=== PATIENT | female | born 1930 | race Caucasian/White ===

== ENCOUNTER 2017-09-03 13:56 | Inpatient (IN) | payer OTHER, BC ==
--- OUTSIDE RECORDS SUMMARY | 2017-09-03 14:08 | XMS REPORT | Clinical Summary ---
:1930 Author Organization [facility] Address [address] [place] [address] Phone Care Team Providers Name Role Phone Unavailable Primary Care Provider Unavailable Allergies No Known Allergies Current Medications Prescription Sig. Disp. Refills Start Date End Date Status potassium chloride Take 20 mEq by Active (KAYCIEL) 20 mEq/15 mL mouth daily. solutionIndications: hypokalemia metolazone (ZAROXOLYN) Take 5 mg by Active 5 MG mouth daily. tabletIndications: Peripheral Edema due to Chronic Heart Failure warfarin (COUMADIN) Take 2.5 mg by Active 2.5 MG tablet mouth daily. atorvastatin (LIPITOR) Take 10 mg by Active 10 MG tablet mouth daily. digoxin (LANOXIN) Take 125 mcg by Active 0.125 MG tablet mouth daily. metoprolol (TOPROL-XL) Take 1 tablet 60 tablet 11 12/05/2015 12/04/2016 25 MG 24 hr tablet (25 mg total) by mouth every 12 (twelve) hours. Active Problems Problem Noted Date Underweight 12/04/2015 Hyponatremia 12/03/2015 Hypokalemia 12/03/2015 Hypomagnesemia 12/03/2015 Hypoalbuminemia due to protein-calorie malnutrition (HCC) 12/03/2015 Severe protein-calorie malnutrition (HCC) 12/03/2015 Open wound of right foot 12/03/2015 Weakness generalized 12/03/2015 Sepsis ([facility]) 12/03/2015 Pleural effusion 12/03/2015 Thoracic aorta atherosclerosis ([facility]) 12/03/2015 Non-rheumatic tricuspid valve insufficiency 12/03/2015 Enlarged LA (left atrium) 12/03/2015 Hypotension 12/02/2015 Chronic diastolic heart failure ([facility]) 12/02/2015 Elevated liver enzymes 12/02/2015 Supratherapeutic INR 12/02/2015 SIRS (systemic inflammatory response syndrome) ([facility]) 12/01/2015 Atrial fibrillation with RVR (HCC) 11/30/2015 Social History Tobacco Use Types Packs/Day Years Used Date Never Smoker Alcohol Use Drinks/Week oz/Week Comments No Sex Assigned at Date Recorded Not on file Last Filed Vital Signs Not on file Plan of Treatment Not on file Results Not on fileafter 09/02/2016
[2017-09-03 15:57] LABS: Protime INR 2.31
[2017-09-03 16:14] LABS: Absolute Lymphocytes (CBC) 0.4 K/uL (0.7-4.9); Absolute Monocytes 1.2 K/uL (0.1-1.3); Absolute Neutrophil 13.5 K/uL (1.8-8.0); Basophils % 0.3 % (0-1.3); Lymphocytes % 2.5 % (15.3-44.8); MCH 30.7 pg (27.0-35.0); MCV 91.6 fL (80-100); MPV 8.9 fL (7.6-11.3); RBC Red Blood Cell Count 4.15 M/uL (3.86-4.86)
[2017-09-03 16:16] LABS: Albumin 2.8 g/dL (3.4-5.0); Bilirubin Direct 0.3 mg/dL (0-0.2); Bilirubin Total 0.8 mg/dL (0.2-1.0); Potassium 4.1 mmol/L (3.5-5.1); Protein, Total 7.3 g/dL (6.4-8.2)
--- NOTE | 2017-09-03 16:24 | RAD REPORT ---
EXAM DESCRIPTION: Aliyah Single View09/03/2017 4:17 pm CLINICAL HISTORY: cough COMPARISON: 2016 FINDINGS: Mild to moderate bilateral interstitial lung opacities are seen. Small pleural effusions a re suspected. The heart is mildly enlarged IMPRESSION: Small bilateral pleural effusions Mild bilateral social lung opacities probably represent interstitial pulmonary.
--- NOTE | 2017-09-03 16:40 | EDPHYS ---
Physician Documentation [facility] Name: Monik Romo Age: 86 yrs Sex: Female : 1930 Arrival Date: 09/03/2017 Time: 13:59 Bed 16 Private MD: Efrem Gay V ED Physician Jovan Mora HPI: 09/03 17:57 This 86 yrs old Female presents to ER via Wheelchair with complaints of kdr Fever, Breathing Difficulty. 17:57 The patient reports fever, not measured (subjective). kdr 17:57 The patient has shortness of breath at rest, with light activity. Onset: The kdr symptoms/episode began/occurred gradually, 2 day(s) ago. Duration: The symptoms are continuous, and are steadily getting worse. The patient's shortness of breath is aggravated by exertion, light activity. Associated signs and symptoms: Pertinent positives: productive cough, fever, nausea, Pertinent negatives: non-productive cough, diaphoresis, dizziness, hemoptysis. Severity of symptoms: At their worst the symptoms were mild. The patient has not experienced similar symptoms in the past. The patient has not recently seen a physician. Historical: - Allergies: 14:30 CRANBERRY; aj1 14:30 GRAPEFRUIT; aj1 14:30 avacado; aj1 - Home Meds: 14:30 atorvastatin 10 mg Oral tab 1 tab once daily [Active]; metoprolol tartrate 25 mg Oral aj1 tab 1 tab 2 times per day [Active]; potassium chloride 20 mEq/15 mL Oral liqd 15 mL once daily [Active]; Vitamin D3 1,000 unit oral tab daily [Active]; warfarin 2.5 mg Oral tab 1 tab once daily [Active]; xaltan daily [Active]; Colace 100 mg oral cap 1 cap once daily [Active]; - PMHx: 14:30 Atrial Fib; breast cancer; CHF; Glaucoma; pulmonary HTN; aj1 - Immunization history:: Flu vaccine is not up to date. - Social history:: Smoking status: Patient/guardian denies using tobacco. - Ebola Screening: : Patient denies travel to an Ebola-affected area in the 21 days before illness onset. ROS: 17:57 Eyes: Negative for injury, pain, redness, and discharge, ENT: Negative for injury, kdr pain, and discharge, Neck: Negative for injury, pain, and swelling, Cardiovascular: Negative for chest pain, palpitations, and edema, Abdomen/GI: Negative for abdominal pain, nausea, vomiting, diarrhea, and constipation, Back: Negative for injury and pain, : Negative for injury, bleeding, discharge, and swelling, MS/Extremity: Negative for injury and deformity, Skin: Negative for injury, rash, and discoloration, Neuro: Negative for headache, weakness, numbness, tingling, and seizure activity. Psych: Negative for depression, anxiety, suicide ideation, homicidal ideation, and hallucinations, Allergy/Immunology: Negative for hives, rash, and allergies, Endocrine: Negative for neck swelling, polydipsia, polyuria, polyphagia, and marked weight changes, Hematologic/Lymphatic: Negative for swollen nodes, abnormal bleeding, and unusual bruising. 17:57 Constitutional: Positive for fever, malaise, Negative for body aches, chills, fatigue. 17:57 Respiratory: Positive for cough, "sounds productive", dyspnea on exertion, shortness of breath, wheezing, inspiratory, expiratory. Exam: 17:57 Constitutional: This is a well developed, well nourished patient who is awake, alert, kdr and in no acute distress. Head/Face: Normocephalic, atraumatic. Eyes: Pupils equal round and reactive to light, extra-ocular motions intact. Lids and lashes normal. Conjunctiva and sclera are non-icteric and not injected. Cornea within normal limits. Periorbital areas with no swelling, redness, or edema. Neck: Trachea midline, no thyromegaly or masses palpated, and no cervical lymphadenopathy. Supple, full range of motion without nuchal rigidity, or vertebral point tenderness. No Meningismus. Chest/axilla: Normal chest wall appearance and motion. Nontender with no deformity. No lesions are appreciated. Cardiovascular: Regular rate and rhythm with a normal S1 and S2. No gallops, murmurs, or rubs. Normal PMI, no JVD. No pulse deficits. Abdomen/GI: Soft, non-tender, with normal bowel sounds. No distension or tympany. No guarding or rebound. No evidence of tenderness throughout. Back: No spinal tenderness. No costovertebral tenderness. Full range of motion. Skin: Warm, dry with normal turgor. Normal color with no rashes, no lesions, and no evidence of cellulitis. MS/ Extremity: Pulses equal, no cyanosis. Neurovascular intact. Full, normal range of motion. Neuro: Awake and alert, GCS 15, oriented to person, place, time, and situation. Cranial nerves II-XII grossly intact. Motor strength 5/5 in all extremities. Sensory grossly intact. Cerebellar exam normal. Normal gait. Psych: Awake, alert, with orientation to person, place and time. Behavior, mood, and affect are within normal limits. 17:57 Respiratory: the patient does not display signs of respiratory distress, Respirations: normal, accessory muscle usage, is absent, grunting, is not present, nasal flaring, is not appreciated, prolonged exhalation, is not present, pursed lip breathing, is not present, intercostal retractions, are absent, shallow respirations, that is mild, Breath sounds: rales, bronchial sounds, rhonchi, + upper airway congestion. wheezing: that is mild, is heard diffusely. Vital Signs: 14:30 BP 107 / 63; Pulse 110; Resp 24; Temp 99.0(O); Pulse Ox 88% on R/A; Weight 59.42 kg aj1 (R); Height 5 ft. 5 in. (165.10 cm); Pain 0/10; 14:37 Pulse Ox 95% on 2 lpm NC; aj1 15:54 BP 107 / 70; Pulse 119; Resp 27; Pulse Ox 98% on 2 lpm NC; tw2 17:16 BP 119 / 72; Pulse 97; Resp 28; Pulse Ox 98% on Nebulizer Mask; tw2 17:44 Pulse 152; tw2 17:51 BP 110 / 78; Pulse 121; Resp 26; Pulse Ox 100% on 2 lpm NC; tw2 17:57 Pulse 145; tw2 18:10 Pulse 135; tw2 18:16 BP 128 / 94; Pulse 121; Resp 26; Pulse Ox 97% on 2 lpm NC; tw2 18:38 Pulse 115; tw2 19:00 BP 100 / 50; Pulse 110; Resp 19; Pulse Ox 95% ; bp 19:52 BP 100 / 55; Pulse 107; Resp 22; Pulse Ox 96% on NC; bp 14:30 Body Mass Index 21.80 (59.42 kg, 165.10 cm) aj1 17:44 provider notified. medicated as ordered tw2 MDM: 16:40 Patient medically screened. kdr 17:57 Data reviewed: vital signs, nurses notes, lab test result(s), EKG, radiologic studies. kdr Counseling: I had a detailed discussion with the patient and/or guardian regarding: the historical points, exam findings, and any diagnostic results supporting the discharge/admit diagnosis, lab results, radiology results, the need for further work-up and treatment in the hospital. 18:03 ED course: The patient had been stable in the ED until a few minutes ago when her HR kdr increased to \\[id number]\\158. Her rate was intermittent and oscillated wildly. The patient was not detrimentally effected by this and was otherwise without complaint. Given small doses of b-vanessa IV and consulted Dr. Andrews. He suggested possible use of Amiodarone and moving the patient to ICU. 09/03 15:26 Order name: Amylase, Serum; Complete Time: 16:28 kdr 09/03 15:26 Order name: Basic Metabolic Panel; Complete Time: 16:28 kdr 09/03 15:26 Order name: Blood Culture Adult (2) kdr 09/03 15:26 Order name: C-Reactive Protein; Complete Time: 16:28 kdr 09/03 15:26 Order name: CBC with Diff kdr 09/03 15:26 Order name: CPK; Complete Time: 16:28 kdr 09/03 15:26 Order name: Lactate; Complete Time: 16:15 kdr 09/03 15:26 Order name: LFT's; Complete Time: 16:28 kdr 09/03 15:26 Order name: Lipase; Complete Time: 16:28 kdr 09/03 15:26 Order name: Procalcitonin kdr 09/03 15:26 Order name: Protime (+inr); Complete Time: 16:15 kdr 09/03 15:26 Order name: Ptt, Activated; Complete Time: 16:15 kdr 09/03 15:26 Order name: Sed Rate kdr 09/03 15:26 Order name: Troponin (emerg Dept Use Only); Complete Time: 16:28 kdr 09/03 15:26 Order name: Chest Single View XRAY kdr 09/03 16:36 Order name: BNP kdr 09/03 16:48 Order name: Low Sodium EDMS 09/03 16:48 Order name: Troponin I EDTX 09/03 16:48 Order name: Basic Metabolic Panel EDMS 07/12 16:48 Order name: Basic Metabolic Panel [facility] 09/03 16:48 Order name: CBC with Automated Diff EDTX 09/03 16:48 Order name: CBC with Automated Diff [facility] 09/03 16:48 Order name: NT PRO-BNP [facility] 09/03 16:48 Order name: NT PRO-BNP [facility] 09/03 19:39 Order name: Manual Differential [facility] 09/03 15:26 Order name: Cardiac monitoring; Complete Time: 16:00 kdr 09/03 15:26 Order name: EKG - Nurse/Tech; Complete Time: 16:00 kdr 09/03 15:26 Order name: IV Saline Lock - Large Bore; Complete Time: 16:00 kdr 09/03 15:26 Order name: Labs collected and sent; Complete Time: 16:00 kdr 09/03 15:26 Order name: O2 Per Protocol; Complete Time: 16:00 kdr 09/03 15:26 Order name: O2 Sat Monitoring; Complete Time: 16:00 kdr Administered Medications: 15:27 CANCELLED (per provider): NS 0.9% (30 ml/kg) 30 ml/kg IV at bolus once; Sepsis Protocol iw 17:10 Drug: Lasix 20 mg Route: IVP; Site: left antecubital; tw2 17:58 Follow up: Response: No adverse reaction tw2 17:16 Drug: Xopenex (3) 1.25 mg Route: Inhalation; tw2 17:48 Drug: Lopressor 2.5 mg Route: IVP; Site: left antecubital; tw2 18:10 Follow up: Pulse 135 bpm; Response: No adverse reaction; provider aware, icu room tw2 ordered. 18:05 Drug: Digoxin 0.5 mg Route: IVP; Site: left antecubital; tw2 18:41 Follow up: Response: No adverse reaction tw2 Disposition: 09/03/17 16:40 Hospitalization ordered by Efrem Gay for Inpatient Admission. Preliminary diagnosis are Acute pulmonary edema, Upper respiratory infection, SOB, Hypoxia. - Bed requested for Intensive Care Unit. - Status is Inpatient Admission. bb - Condition is Fair. - Problem is new. - Symptoms have improved. UTI on Admission? No Signatures: Dispatcher [employer] EDMS Hollie Dave RN RN aj1 Jovan Mora MD MD [facility] Xiao Landis RN RN bb Brigitte Lloyd RN RN tw2 Katia Haddad, RN RN df Mercedes Watson RN Corrections: (The following items were deleted from the chart) 15:27 15:26 NS 0.9% (30 ml/kg) 30 ml/kg IV at bolus once; Sepsis Protocol ordered. kdr iw 15:27 15:26 Accucheck ordered. kdr iw 17:51 16:40 Hospitalization Ordered by Efrem Gay MD for Inpatient Admission. Preliminary df diagnosis is Acute pulmonary edema; Upper respiratory infection, SOB, Hypoxia. Bed requested for Telemetry/MedSurg (Inpatient). Status is Inpatient Admission. Condition is Fair. Problem is new. Symptoms have improved. UTI on Admission? No. kdr 18:09 17:51 09/03/2017 16:40 Hospitalization Ordered by Efrem Gay MD for Inpatient kdr Admission. Preliminary diagnosis is Acute pulmonary edema; Upper respiratory infection, SOB, Hypoxia. Bed requested for Telemetry/MedSurg (Inpatient). Status is Inpatient Admission. Condition is Fair. Problem is new. Symptoms have improved. UTI on Admission? No. df 18:15 18:09 09/03/2017 16:40 Hospitalization Ordered by Efrem Gay MD for Inpatient df Admission. Preliminary diagnosis is Acute pulmonary edema; Upper respiratory infection, SOB, Hypoxia. Bed requested for Intensive Care Unit. Status is Inpatient Admission. Condition is Fair. Problem is new. Symptoms have improved. UTI on Admission? No. kdr 20:45 18:15 09/03/2017 16:40 Hospitalization Ordered by Efrem Gay MD for Inpatient bb Admission. Preliminary diagnosis is Acute pulmonary edema; Upper respiratory infection, SOB, Hypoxia. Bed requested for Intensive Care Unit. Status is Inpatient Admission. Condition is Fair. Problem is new. Symptoms have improved. UTI on Admission? No. df
--- NOTE | 2017-09-03 16:40 | ER ---
Nurse's Notes [facility] Name: Monik Romo Age: 86 yrs Sex: Female : 1930 Arrival Date: 09/03/2017 Time: 13:59 Bed 16 Private MD: Efrem Gay V Diagnosis: Acute pulmonary edema;Upper respiratory infection, SOB, Hypoxia Presentation: 09/03 14:25 Presenting complaint: Patient states: Her home health nurse sent here because her aj1 oxygen saturation was low and her heart rate was high. Denies pain. Denies SOB, reports congestion. Transition of care: patient was not received from another setting of care. Onset of symptoms was September 03, 2017. Risk Assessment: Do you want to hurt yourself or someone else? Patient reports no desire to harm self or others. Initial Sepsis Screen: Does the patient meet any 2 criteria? No. Patient's initial sepsis screen is negative. Does the patient have a suspected source of infection? No. Patient's initial sepsis screen is negative. Care prior to arrival: None. 14:25 Method Of Arrival: Wheelchair aj1 14:25 Acuity: JULIAN 3 aj1 Triage Assessment: 14:30 General: Appears in no apparent distress. comfortable, Behavior is calm, cooperative, aj1 appropriate for age. Pain: Denies pain. Neuro: Level of Consciousness is awake, alert, obeys commands. Cardiovascular: Patient's skin is warm and dry. Respiratory: Reports shortness of breath on exertion Airway is patent Respiratory effort is even, unlabored, Respiratory pattern is regular, symmetrical, Onset: The symptoms/episode began/occurred today, the patient has mild shortness of breath. Historical: - Allergies: 14:30 CRANBERRY; aj1 14:30 GRAPEFRUIT; aj1 14:30 avacado; aj1 - Home Meds: 14:30 atorvastatin 10 mg Oral tab 1 tab once daily [Active]; metoprolol tartrate 25 mg Oral aj1 tab 1 tab 2 times per day [Active]; potassium chloride 20 mEq/15 mL Oral liqd 15 mL once daily [Active]; Vitamin D3 1,000 unit oral tab daily [Active]; warfarin 2.5 mg Oral tab 1 tab once daily [Active]; xaltan daily [Active]; Colace 100 mg oral cap 1 cap once daily [Active]; - PMHx: 14:30 Atrial Fib; breast cancer; CHF; Glaucoma; pulmonary HTN; aj1 - Immunization history:: Flu vaccine is not up to date. - Social history:: Smoking status: Patient/guardian denies using tobacco. - Ebola Screening: : Patient denies travel to an Ebola-affected area in the 21 days before illness onset. Screenin:44 Abuse screen: Denies threats or abuse. Nutritional screening: No deficits noted. tw2 Tuberculosis screening: No symptoms or risk factors identified. Fall Risk None identified. Assessment: 14:42 General: Appears in no apparent distress. Behavior is calm, cooperative, appropriate tw2 for age. Pain: Denies pain. Neuro: Level of Consciousness is awake, alert, obeys commands, Oriented to person, place, situation. Cardiovascular: Denies chest pain, Heart tones S1 S2 Capillary refill < 3 seconds Rhythm is atrial fibrillation. Respiratory: Airway is patent Respiratory effort is even, unlabored, Respiratory pattern is regular, symmetrical, Breath sounds are diminished bilaterally. GI: No signs and/or symptoms were reported involving the gastrointestinal system. Abdomen is flat. : No signs and/or symptoms were reported regarding the genitourinary system. EENT: No signs and/or symptoms were reported regarding the EENT system. Derm: Skin is fragile, is thin, Skin is dry, Skin temperature is warm. Musculoskeletal: Range of motion: intact in all extremities. 14:42 Respiratory: Reports cough that is productive, white sputum on occasion. tw2 15:55 Reassessment: Patient appears in no apparent distress at this time. No changes from tw2 previously documented assessment. Patient and/or family updated on plan of care and expected duration. Pain level reassessed. Patient is alert, oriented x 3, equal unlabored respirations, skin warm/dry/pink. 17:17 Reassessment: Patient appears in no apparent distress at this time. No changes from tw2 previously documented assessment. Patient and/or family updated on plan of care and expected duration. Pain level reassessed. Patient is alert, oriented x 3, equal unlabored respirations, skin warm/dry/pink. 17:20 Reassessment: notified caryn mccurdy from lab of need for 2nd troponin to be drawn. tw2 18:18 Reassessment: Patient appears in no apparent distress at this time. No changes from tw2 previously documented assessment. Patient and/or family updated on plan of care and expected duration. Pain level reassessed. Patient is alert, oriented x 3, equal unlabored respirations, skin warm/dry/pink. 19:00 Reassessment: RECD REPORT FROM RAMONA ROJAS. 86WF P/W FEVER AND SOB. ICU ADMIT IN PROCESS bp FOR ACUTE URI AND PULMONARY EDEMA. VS STABLE ON MONITOR. 20:00 Reassessment: PT ADMIT TO ICU. AFIB ON MONITOR, KNOWN H/O SAME. bp 20:21 Reassessment: PT CADEN WITH RN, REPORT TO DANE ROJAS. bp Vital Signs: 14:30 BP 107 / 63; Pulse 110; Resp 24; Temp 99.0(O); Pulse Ox 88% on R/A; Weight 59.42 kg aj1 (R); Height 5 ft. 5 in. (165.10 cm); Pain 0/10; 14:37 Pulse Ox 95% on 2 lpm NC; aj1 15:54 BP 107 / 70; Pulse 119; Resp 27; Pulse Ox 98% on 2 lpm NC; tw2 17:16 BP 119 / 72; Pulse 97; Resp 28; Pulse Ox 98% on Nebulizer Mask; tw2 17:44 Pulse 152; tw2 17:51 BP 110 / 78; Pulse 121; Resp 26; Pulse Ox 100% on 2 lpm NC; tw2 17:57 Pulse 145; tw2 18:10 Pulse 135; tw2 18:16 BP 128 / 94; Pulse 121; Resp 26; Pulse Ox 97% on 2 lpm NC; tw2 18:38 Pulse 115; tw2 19:00 BP 100 / 50; Pulse 110; Resp 19; Pulse Ox 95% ; bp 19:52 BP 100 / 55; Pulse 107; Resp 22; Pulse Ox 96% on NC; bp 14:30 Body Mass Index 21.80 (59.42 kg, 165.10 cm) aj1 17:44 provider notified. medicated as ordered tw2 ED Course: 13:59 Patient arrived in ED. rg4 13:59 Efrem Gay MD is Private Physician. rg4 14:27 Triage completed. aj1 14:30 Arm band placed on Patient placed in an exam room. aj1 14:34 Ramona Lloyd RN is Primary Nurse. tw2 14:40 Jovan Mora MD is Attending Physician. kdr 14:44 Bed in low position. Call light in reach. Side rails up X 1. Adult w/ patient. Cardiac tw2 monitor on. Pulse ox on. NIBP on. 16:18 Chest Single View XRAY In Process Unspecified. EDMS 16:38 Efrem Gay MD is Hospitalizing Provider. kdr 18:17 Awaiting: attempted to call report, Caryn Hough states "they are getting ready to do tw2 shift change can you call back". 18:59 Report given to CRYSTAL Carey. tw2 19:02 No provider procedures requiring assistance completed. Patient admitted, IV remains in bp place. Administered Medications: 15:27 CANCELLED (per provider): NS 0.9% (30 ml/kg) 30 ml/kg IV at bolus once; Sepsis Protocol iw 17:10 Drug: Lasix 20 mg Route: IVP; Site: left antecubital; tw2 17:58 Follow up: Response: No adverse reaction tw2 17:16 Drug: Xopenex (3) 1.25 mg Route: Inhalation; tw2 17:48 Drug: Lopressor 2.5 mg Route: IVP; Site: left antecubital; tw2 18:10 Follow up: Pulse 135 bpm; Response: No adverse reaction; provider aware, icu room tw2 ordered. 18:05 Drug: Digoxin 0.5 mg Route: IVP; Site: left antecubital; tw2 18:41 Follow up: Response: No adverse reaction tw2 Intake: Outcome: 16:40 Decision to Hospitalize by Provider. kdr 20:22 Admitted to ICU accompanied by nurse, family with patient, via stretcher, room 7, with bp oxygen, with chart, Report called to DANE ROJAS 20:22 Condition: stable 20:22 Instructed on the need for admit. 20:45 Patient left the ED. bb Signatures: Dispatcher [employer] EDMS Hollie Dave RN RN aj1 Jovan Mora MD MD kdr Xiao Landis RN RN bb Ramona Lloyd RN RN tw2 Alessandra Minor rg4 Samuel Harvey RN RN bp Williams, Irene RN iw Corrections: (The following items were deleted from the chart) 14:44 14:42 Cardiovascular: Denies chest pain, Heart tones S1 S2 Capillary refill < 3 seconds tw2 Rhythm is irregular tw2 15:59 14:42 Respiratory: Airway is patent Respiratory effort is even, unlabored, Respiratory tw2 pattern is regular, symmetrical, Breath sounds are clear bilaterally. tw2 17:58 17:44 Pulse 152bpm; provider notified.; tw2 tw2
[2017-09-03] MEDS ORDERED: ACETAMINOPHEN 500 MG TAB PO PRN (16:43)
[2017-09-03] MEDS ORDERED: IPRATROPIUM BROM 0.5MG/2.5ML NEB PRN (16:43)
[2017-09-03] MEDS ORDERED: ONDANSETRON 4 MG/2 ML VIAL IV PRN (16:43)
[2017-09-03] MEDS: FUROSEMIDE 20 MG/ 2ML VIAL IV SCH (17:00)
[2017-09-03] MEDS ORDERED: FUROSEMIDE 20 MG/ 2ML VIAL IV SCH (17:00)
[2017-09-03] MEDS ORDERED: FUROSEMIDE 20 MG/ 2ML VIAL ONE (17:13)
[2017-09-03] MEDS ORDERED: LEVALBUTEROL 1.25 MG/3 ML NEB ONE (17:14)
[2017-09-03] MEDS ORDERED: METOPROLOL TARTRATE 5 MG/5 ML INJ IV ONE (17:49)
[2017-09-03] MEDS ORDERED: DIGOXIN 0.25 MG/ML AMP ONE (18:05)
[2017-09-03 19:39] LABS: Blood Morphology Comment NOT SEEN (NOT SEEN); Platelet Estimate ADEQ
[2017-09-03] MEDS: LEVALBUTEROL 1.25 MG/3 ML NEB NEB SCH (21:17)
--- NOTE | 2017-09-03 21:35 | P.HP ---
Certification for Inpatient Patient admitted to: Inpatient With expected LOS: >2 Midnights Practitioner: I am a practitioner with admitting privileges, knowledge of patient current condition, hospital course, and medical plan of care. Services: Services provided to patient in accordance with Admission requirements found in Title 42 Section 412.3 of the Code of Federal Regulations Patient History Date of Service: 09/03/17 Reason for admission: WEAK, FATIGUE History of Present Illness: MS. MADRID IS A FRAIL LADY WITH A FIB BY HISTORY COMES WITH WEAKNESS, FATIGUE, LOW GRADE TEMP ELEVATION AND RAPID A FIB. SHE WAS GIVEN A DOSE OF DIGOXIN IV AND LOPRESSOR, NOW IN ICU. SHE HAS HIGH BNP AND HIGH CRP. WBC COUNT IS 15K. Allergies cranberry Allergy (Unverified 09/03/17 20:51) Unknown grapefruit Allergy (Unverified 09/03/17 20:51) Unknown avacado Allergy (Uncoded 09/03/17 20:51) Unknown - Past Medical/Surgical History Has patient received pneumonia vaccine in the past: Yes -: atrial Fibrillation -: breast cancer -: CHF -: Glaucoma -: tonsilectomy -: hysterectomy -: mastectomy - Family History Father -: Cancer Mother -: Cancer - Social History Smoking Status: Never smoker Alcohol use: No CD- Drugs: No Caffeine use: Yes Place of Residence: Home Review of Systems 10-point ROS is otherwise unremarkable General: Weakness, Malaise Respiratory: Cough, Shortness of Breath Physical Examination - Vital Signs Temperature: 99.0 F Blood Pressure: 100/55 Pulse: 107 Respirations: 22 - Physical Exam General: Alert, In no apparent distress, Mild distress HEENT: Atraumatic, PERRLA, Mucous membr. moist/pink, EOMI, Sclerae nonicteric Neck: Supple, 2+ carotid pulse no bruit, No LAD, Without JVD or thyroid abnormality Respiratory: Diminished, Crackles/rales Cardiovascular: Irregular heart rate/rhythm, Abnormal S1 S2 Gastrointestinal: Normal bowel sounds, No tenderness Musculoskeletal: No tenderness Integumentary: No rashes Neurological: Normal gait, Normal speech, Normal strength at 5/5 x4 extr, Normal tone, Normal affect Lymphatics: No axilla or inguinal lymphadenopathy - Studies Laboratory Data (last 24 hrs) 09/03/17 15:30: PT 27.5 H, INR 2.31, APTT 29.6 09/03/17 15:30: WBC 15.2 H, Hgb 12.7, Hct 38.0, Plt Count 256 09/03/17 15:30: Sodium 139, Potassium 4.1, BUN 21 H, Creatinine 1.00, Glucose 166 H, Total Bilirubin 0.8, AST 21, ALT 20, Alkaline Phosphatase 97, Amylase 33 , Lipase 96 Assessment and Plan - Problems (Diagnosis) (1) Rapid atrial fibrillation Current Visit: Yes Status: Chronic Plan: SP DIGOXIN AND IV LOPRESSOR NOW TO BE ON AMIODARONE OR BETAPACE TO BE DECIDED BY DR BARRETT. I CALLED ICU NURSE DANE TO CALL HIM. HER INSTRUCTIONAL SERVICES SPECIALIST IS IN [place], WHO JUST SAW HER TWO DAYS BEFORE GETTING SICK. DR CASTANEDA. (2) Sepsis Current Visit: Yes Status: Acute Plan: BC [address] CHEST MAY HAVE PNEUMONIA IV ROCEPHIN TO CONTINUE. - Advance Directives Does patient have a Living Will: Yes Does patient have a Durable POA for Healthcare: Yes
[2017-09-03] MEDS: METOPROLOL TAR 50 MG TAB PO SCH (23:44)
[2017-09-03] MEDS: CEFTRIAXONE/SWI 1gm 1 GM/10 ML SYR IVP SCH (23:45)
[2017-09-04] MEDS: LEVALBUTEROL 1.25 MG/3 ML NEB NEB SCH ×4 (02:16→20:00)
[2017-09-04 05:32] LABS: Absolute Lymphocytes (CBC) 0.6 K/uL (0.7-4.9); Absolute Monocytes 1.1 K/uL (0.1-1.3); Absolute Neutrophil 11.6 K/uL (1.8-8.0); Basophils % 0.3 % (0-1.3); Eosinophils % 0.1 % (0-4.4); Hematocrit 35.4 % (36.0-45.0); Lymphocytes % 4.5 % (15.3-44.8); MPV 8.1 fL (7.6-11.3); Monocytes % 8.2 % (3.3-12.3); RBC Red Blood Cell Count 3.89 M/uL (3.86-4.86)
[2017-09-04 05:35] LABS: Protime INR 2.68
[2017-09-04 06:00] LABS: Potassium 3.6 mmol/L (3.5-5.1)
[2017-09-04] MEDS: CEFTRIAXONE/SWI 1gm 1 GM/10 ML SYR IVP SCH ×2 (08:26→21:16)
[2017-09-04] MEDS: METOPROLOL TAR 50 MG TAB PO SCH ×2 (09:00→21:15)
--- NOTE | 2017-09-04 09:21 | RAD REPORT ---
EXAM DESCRIPTION: CT - Chest For Pe Angio - 09/04/2017 8:48 am CLINICAL HISTORY: Chest pain. PNEUMONIA COMPARISON: Chest Single View dated 09/03/2017 TECHNIQUE: CT angiogram of the pulmonary arteries was performed with MIP. All CT scans are performed using dose optimization technique as appropriate and may include automated exposure control or mA/KV adjustment according to patient size. FINDINGS: No evidence of pulmonary thromboembolism. No acute aortic finding demonstrated. Bibasilar lung consolidations are present, greater on the left, likely representing pneumonia. The eliceo ngs are emphysematous. Small bilateral pleural effusions are noted, slightly greater on the left. Moderate dextroscoliosis of the upper thoracic spine. IMPRESSION: No evidence of pulmonary thromboembolism. Bibasilar lung consolidations are present, slightly greater on the left with small pleural effusions. Bibasilar pneumonia or aspiration is the favored etiology.
[2017-09-04] MEDS: FUROSEMIDE 20 MG/ 2ML VIAL IV SCH (09:25)
[2017-09-04] MEDS ORDERED: POTASSIUM 25 MEQ EFFERV TAB PO ONE (13:53)
[2017-09-04] MEDS ORDERED: POTASSIUM CL SA 10 MEQ TAB PO ONE (14:00)
[2017-09-04] MEDS ORDERED: DOCUSATE NA 100 MG CAP PO PRN (14:27)
[2017-09-04] MEDS ORDERED: ACETAMINOPHEN 325 MG TABLET PO PRN (14:27)
--- NOTE | 2017-09-04 14:32 | P.PN ---
Subjective Date of Service: 09/04/17 Chief Complaint: LOT BETTER Subjective: Improving Review of Systems 10-point ROS is otherwise unremarkable General: Weakness, Malaise Physical Examination - Vital Signs Temperature: 98.5 F Blood Pressure: 101/43 Pulse: 88 Respirations: 21 Pulse Ox (%): 96 - Physical Exam HEENT: Atraumatic, PERRLA, EOMI Neck: Supple, JVD not distended Respiratory: Diminished Cardiovascular: Irregular heart rate/rhythm Gastrointestinal: Normal bowel sounds, No tenderness Musculoskeletal: No tenderness Integumentary: No rashes Neurological: Normal speech, Normal tone, Normal affect Lymphatics: No axilla or inguinal lymphadenopathy - Studies Laboratory Data (last 24 hrs) 09/03/17 15:30: PT 27.5 H, INR 2.31, APTT 29.6 09/03/17 15:30: WBC 15.2 H, Hgb 12.7, Hct 38.0, Plt Count 256 09/03/17 15:30: Sodium 139, Potassium 4.1, BUN 21 H, Creatinine 1.00, Glucose 166 H, Total Bilirubin 0.8, AST 21, ALT 20, Alkaline Phosphatase 97, Amylase 33 , Lipase 96 Medications List Reviewed: Yes Assessment And Plan - Current Problems (Diagnosis) (1) Rapid atrial fibrillation Onset Date: 09/04/17 Current Visit: Yes Status: Chronic Plan: SP DIGOXIN AND IV LOPRESSOR NOW TO BE ON AMIODARONE OR BETAPACE TO BE DECIDED BY DR BARRETT. I CALLED ICU NURSE DANE TO CALL HIM. HER APPAREL STOCK CHECKER IS IN [place], WHO JUST SAW HER TWO DAYS BEFORE GETTING SICK. DR CASTANEDA. (2) Aspiration pneumonia Current Visit: Yes Status: Acute Plan: CT SCAN SHOWS THIS. SHE HAS SOME COUGHING AT NIGHT. WILL ORDER MBS. Qualifiers: Aspiration pneumonia type: due to gastric secretions
[2017-09-04] MEDS ORDERED: OPTH OPTH SCH (14:45)
[2017-09-04] MEDS ORDERED: LATANOPROST 0.005% OPTH SCH (14:45)
--- NOTE | 2017-09-04 15:32 | RAD REPORT ---
EXAM DESCRIPTION: RAD - Barium Swallow Modified - 09/04/2017 3:26 pm CLINICAL HISTORY: Coughing and choking FINDINGS: laryngeal pentration : cleared when taking pill with thin liquid other : no aspiration observed during the study , esophageal stasis present fluoro time : 3.27 min
[2017-09-04] MEDS: CALCIUM PHOSPHATE TRIB PO SCH (21:00)
[2017-09-04] MEDS: VIT D3 PO SCH (21:00)
[2017-09-04] MEDS: ATORVASTATIN 10 MG TAB PO SCH (21:15)
[2017-09-05] MEDS: LEVALBUTEROL 1.25 MG/3 ML NEB NEB SCH ×4 (01:24→20:40)
[2017-09-05 06:38] LABS: Potassium 3.7 mmol/L (3.5-5.1)
[2017-09-05] MEDS: FUROSEMIDE 20 MG TABLET PO SCH (09:00)
[2017-09-05] MEDS: CALCIUM PHOSPHATE TRIB PO SCH ×2 (09:00→20:25)
[2017-09-05] MEDS ORDERED: POTASSIUM 25 MEQ EFFERV TAB PO ONE (09:00)
[2017-09-05] MEDS ORDERED: HOME MED 1 EA UNK (Cholecalciferol (Vitamin D3) [Vitamin D3] 1,000 UNIT) PO SCH (09:00)
[2017-09-05] MEDS ORDERED: METOPROLOL XL 25 MG TAB PO SCH (09:00)
[2017-09-05] MEDS: METOPROLOL TAR 50 MG TAB PO SCH ×2 (09:00→20:18)
[2017-09-05] MEDS: VIT D3 PO SCH ×2 (09:00→20:25)
[2017-09-05] MEDS: CEFTRIAXONE/SWI 1gm 1 GM/10 ML SYR IVP SCH ×2 (09:54→20:21)
[2017-09-05] MEDS: WARFARIN SODIUM 1 MG TAB PO SCH (09:55)
[2017-09-05] MEDS: VITAMIN D 1000 UNIT TAB PO SCH (09:55)
--- NOTE | 2017-09-05 12:54 | CON ---
Date of Consultation: 09/04/[address] to [address] Gay's service on 09/03/2017. She was seen by me on 09/04/2017. Reason For Consultation: Atrial fibrillation. History Of Present Illness: Ms. Romo is an 86-year-old woman who has had chronic atrial fibrillatio n as well as history of chronic diastolic congestive heart failure, pulmonary hypertension. She has a history of breast cancer that is acute, history of glaucoma. Came in with palpitation, was found t o have a rapid ventricular response. Chest x-ray showed some mild congestive heart failure. She had an EKG that showed rapid atrial fibrillation. She had a white count was 15,000 with left shift and BNP was 6898. Her troponin was negative. By the time I saw her, she was receiving IV Lasix and anti biotics. Her atrial fibrillation rate had dropped down into the 90s and she was asymptomatic. Echoc ardiogram is pending. Past Medical History: As stated above. Allergies: TO CRANBERRY, GRAPEFRUIT, AND AVOCADO. Medications: At home include Coumadin, potassium, metoprolol, and Lipitor. Review of Systems: Negative. Social History: Negative. Family History: Negative. Physical Examination: General: She was pleasant, alert, oriented x3, atrial fibrillation in the 90s. Afebrile. HEENT: Negative. Neck: Supple without any lymphadenopathy, JVD, thyromegaly, or bruit. Chest: Reveals some rales at both bases. Cardiac: Revealed atrial fibrillation without murmurs, gallops, or rubs. Abdomen: Benign. Extremities: Revealed just trace edema. Diagnostic Data: As stated earlier. Impression And Plan: 1.Chronic atrial fibrillation on Coumadin, rate is controlled right now after IV Lasix and antibioti cs. I will continue on metoprolol and Coumadin as well. 2.Chronic diastolic congestive heart failure. Another echocardiogram is pending. The elevation in the BNP is not unexpected considering her history. 3.Dyslipidemia, on Lipitor. 4.History of pulmonary hypertension, breast cancer, glaucoma, all of which seem to be stable at this point. I think Ms. Romo will go home at a low dose Lasix may be indicated as an outpatient. Regar dless what her echo shows. I do not want to embark on a coronary workup on her at this point. We wi ll continue to follow her along. ROSARIO/JESSICA Voice ID: [id number] Report ID: [id number]
--- NOTE | 2017-09-05 13:33 | P.PN ---
Subjective Date of Service: 09/05/17 Chief Complaint: LOT BETTER Subjective: Improving (Feels stronger.) Review of Systems 10-point ROS is otherwise unremarkable Physical Examination - Vital Signs Temperature: 96.9 F Blood Pressure: 120/63 Pulse: 101 Respirations: 20 Pulse Ox (%): 98 - Physical Exam General: Alert, Cachectic, Mild distress HEENT: Atraumatic, PERRLA, EOMI Neck: Supple, JVD not distended Respiratory: Clear to auscultation bilaterally, Normal air movement Cardiovascular: Irregular heart rate/rhythm Gastrointestinal: Normal bowel sounds, No tenderness Musculoskeletal: No tenderness Integumentary: No rashes Neurological: Normal speech, Normal tone, Normal affect Lymphatics: No axilla or inguinal lymphadenopathy - Studies Medications List Reviewed: Yes Assessment And Plan - Current Problems (Diagnosis) (1) Rapid atrial fibrillation Onset Date: 09/04/17 Current Visit: Yes Status: Chronic Plan: SP DIGOXIN AND IV LOPRESSOR NOW TO BE ON AMIODARONE OR BETAPACE TO BE DECIDED BY DR BARRETT. I CALLED ICU NURSE DANE TO CALL HIM. HER KENNEL TECHNICIAN IS IN [place], WHO JUST SAW HER TWO DAYS BEFORE GETTING SICK. DR CASTANEDA. On Metoprolol bid. On warfarin (2) Aspiration pneumonia Current Visit: Yes Status: Acute Plan: CT SCAN SHOWS THIS. SHE HAS SOME COUGHING AT NIGHT. WILL ORDER MBS. Qualifiers: Aspiration pneumonia type: due to gastric secretions
[2017-09-05] MEDS: ATORVASTATIN 10 MG TAB PO SCH (20:19)
[2017-09-06] MEDS: LEVALBUTEROL 1.25 MG/3 ML NEB NEB SCH ×4 (01:16→20:00)
[2017-09-06 05:28] LABS: Potassium 4.1 mmol/L (3.5-5.1)
[2017-09-06] MEDS: FUROSEMIDE 20 MG TABLET PO SCH (08:48)
[2017-09-06] MEDS: CEFTRIAXONE/SWI 1gm 1 GM/10 ML SYR IVP SCH ×2 (08:48→20:14)
[2017-09-06] MEDS: WARFARIN SODIUM 1 MG TAB PO SCH (08:49)
[2017-09-06] MEDS: VITAMIN D 1000 UNIT TAB PO SCH (08:49)
[2017-09-06] MEDS: VIT D3 PO SCH ×2 (08:50→20:14)
[2017-09-06] MEDS: METOPROLOL TAR 50 MG TAB PO SCH ×2 (08:50→20:13)
[2017-09-06] MEDS: CALCIUM PHOSPHATE TRIB PO SCH ×2 (08:50→20:14)
[2017-09-06] MEDS: ATORVASTATIN 10 MG TAB PO SCH (20:13)
[2017-09-07] MEDS: LEVALBUTEROL 1.25 MG/3 ML NEB NEB SCH ×2 (02:26→07:48)
[2017-09-07 07:21] LABS: Absolute Lymphocytes (CBC) 0.8 K/uL (0.7-4.9); Absolute Monocytes 0.8 K/uL (0.1-1.3); Absolute Neutrophil 9.6 K/uL (1.8-8.0); Basophils % 1.1 % (0-1.3); Hematocrit 34.9 % (36.0-45.0); MPV 7.6 fL (7.6-11.3); Monocytes % 6.7 % (3.3-12.3); RBC Red Blood Cell Count 3.79 M/uL (3.86-4.86)
[2017-09-07 07:38] LABS: Potassium 3.9 mmol/L (3.5-5.1)
--- NOTE | 2017-09-07 08:19 | ECHO ---
HEIGHT: 5 ft 6 in WEIGHT: 139 lb 0 oz DATE OF STUDY: 09/04/[address]: 2-DIMENSIONAL: YES M.MODE: YES DOPPLER: YES COLOR FLOW: YES TDS: NO PORTABLE: NO DEFINITY: NO BUBBLE STUDY: NO DIAGNOSIS: CONGESTIVE HEART FAILURE CARDIAC HISTORY: CATHERIZATION: NO SURGERY: NO PROSTHETIC VALVE: NO PACEMAKER: NO MEASUREMENTS (cm) DIASTOLIC (NORMALS) SYSTOLIC (NORMALS) IVSd 0.8 (0.6-1.2) LA Diam (1.9-4.0) LVEF 75% LVIDd 3.7 (3.5-5.7) LVIDs 2.1 (2.0-3.5) %FS 43% LVPWd 0.9 (0.6-1.2) Ao Diam 2.6 (2.0-3.7) 2 DIMENSIONAL ASSESSMENT: RIGHT ATRIUM: NORMAL LEFT ATRIUM: NORMAL RIGHT VENTRICLE: NORMAL LEFT VENTRICLE: NORMAL TRICUSPID VALVE: NORMAL MITRAL VALVE: MITRAL ANNULAR CALCIFICATION PULMONIC VALVE: NORMAL AORTIC VALVE: SCLEROSIS PERICARDIAL EFFUSION: NONE AORTIC ROOT: NORMAL LEFT VENTRICULAR WALL MOTION: NORMAL DOPPLER/COLOR FLOW: MILD TRICUSPID REGURGITATION. MILD PULMONARY HYPERTENSION. COMMENTS: MILD PULMONARY HYPERTENSION. RIGHT VENTRICULAR SYSTOLIC PRESSURE 44MMHG. NORMAL LEFT VENTRICULAR SIZE AND FUNCTION. MITRAL ANNULAR CALCIFICATION. AORTIC SCLEROSIS. TECHNOLOGIST: ETHEL MORRISON
[2017-09-07] MEDS ORDERED: POTASSIUM 25 MEQ EFFERV TAB PO ONE (08:43)
[2017-09-07] MEDS: CEFTRIAXONE/SWI 1gm 1 GM/10 ML SYR IVP SCH (08:59)
[2017-09-07] MEDS: VITAMIN D 1000 UNIT TAB PO SCH (09:00)
[2017-09-07] MEDS: VIT D3 PO SCH (09:00)
[2017-09-07] MEDS: WARFARIN SODIUM 1 MG TAB PO SCH (09:00)
[2017-09-07] MEDS: CALCIUM PHOSPHATE TRIB PO SCH (09:00)
[2017-09-07] MEDS: METOPROLOL TAR 50 MG TAB PO SCH (09:39)
[2017-09-07] MEDS: FUROSEMIDE 20 MG TABLET PO SCH (09:43)
--- NOTE | 2017-09-07 20:49 | P.PN ---
Subjective Date of Service: 09/07/17 Chief Complaint: LOT BETTER Subjective: Improving Review of Systems 10-point ROS is otherwise unremarkable Physical Examination - Vital Signs Temperature: 97.1 F Blood Pressure: 124/59 Pulse: 93 Respirations: 20 Pulse Ox (%): 94 - Physical Exam General: Alert, In no apparent distress, Cachectic HEENT: Atraumatic, PERRLA, EOMI Neck: Supple, JVD not distended Respiratory: Clear to auscultation bilaterally, Normal air movement Cardiovascular: Irregular heart rate/rhythm Gastrointestinal: Normal bowel sounds, No tenderness Musculoskeletal: No tenderness Integumentary: No rashes Neurological: Normal speech, Normal tone, Normal affect Lymphatics: No axilla or inguinal lymphadenopathy - Studies Medications List Reviewed: Yes Assessment And Plan - Current Problems (Diagnosis) (1) Rapid atrial fibrillation Onset Date: 09/04/17 Status: Chronic Plan: SP DIGOXIN AND IV LOPRESSOR NOW TO BE ON AMIODARONE OR BETAPACE TO BE DECIDED BY DR BARRETT. I CALLED ICU NURSE DANE TO CALL HIM. HER ELECTRONICS COMPUTER MECHANIC IS IN [place], WHO JUST SAW HER TWO DAYS BEFORE GETTING SICK. DR CASTANEDA. On Metoprolol bid. On warfarin AMBULATE TODAY DC IN AM (2) Aspiration pneumonia Status: Acute Plan: CT SCAN SHOWS THIS. SHE HAS SOME COUGHING AT NIGHT. WILL ORDER MBS. Qualifiers: Aspiration pneumonia type: due to gastric secretions
--- NOTE | 2017-09-07 20:50 | P.DS ---
Admission Date: 09/03/17 Discharge Date: 09/07/17 Disposition: ROUTINE DISCHARGE Discharge Condition: FAIR Reason for Admission: LOT BETTER - Problems (1) Rapid atrial fibrillation Onset Date: 09/04/17 Status: Chronic (2) Aspiration pneumonia Status: Acute Qualifiers: Aspiration pneumonia type: due to gastric secretions Brief History of Present Illness: MS. MADRID IS A FRAIL LADY WITH A FIB BY HISTORY COMES WITH WEAKNESS, FATIGUE, LOW GRADE TEMP ELEVATION AND RAPID A FIB. SHE WAS GIVEN A DOSE OF DIGOXIN IV AND LOPRESSOR, NOW IN ICU. SHE HAS HIGH BNP AND HIGH CRP. WBC COUNT IS 15K. MS MADRID IS A LOT BETTER. SHE MOSTLY HAD PNEUMONIA LEADING TO RAPID A FIB. SHE WILL TAKE LEVAQUIN. I HAVE REDUCED DOSE OF WARFARIN AND WILL CHECK AGAIN ON THURSDAY. Vital Signs/Physical Exam: Temp Pulse Resp BP Pulse Ox 97.1 F 93 H 20 124/59 L 94 09/07/17 20:49 09/07/17 20:49 09/07/17 20:49 09/07/17 20:49 09/07/17 20:49 Laboratory Data at Discharge: WBC 11.5 K/uL (4.3-10.9) H D 09/07/17 07:01 Hgb 11.4 g/dL (12.0-15.0) L 09/07/17 07:01 Hct 34.9 % (36.0-45.0) L 09/07/17 07:01 Plt Count 298 K/uL (152-406) D 09/07/17 07:01 PT 23.8 SECONDS (9.5-12.5) H 09/07/17 07:01 INR 2.00 09/07/17 07:01 APTT 29.6 SECONDS (24.3-36.9) 09/03/17 15:30 Sodium 139 mmol/L (136-145) 09/07/17 07:01 Potassium 3.9 mmol/L (3.5-5.1) 09/07/17 07:01 BUN 16 mg/dL (7-18) 09/07/17 07:01 Creatinine 0.80 mg/dL (0.55-1.3) 09/07/17 07:01 Glucose 97 mg/dL (74-106) 09/07/17 07:01 Total Bilirubin 0.8 mg/dL (0.2-1.0) 09/03/17 15:30 AST 21 U/L (15-37) 09/03/17 15:30 ALT 20 U/L (12-78) 09/03/17 15:30 Alkaline Phosphatase 97 U/L (45-117) 09/03/17 15:30 Troponin I < 0.02 ng/mL (0.0-0.045) 09/03/17 17:30 Amylase 33 U/L (25-115) 09/03/17 15:30 Lipase 96 U/L (73-393) 09/03/17 15:30 Home Medications: Acetaminophen [Tylenol] 325 mg PO Q6HP PRN 09/03/17 Calcium Phosphate Trib/Vit D3 [Citracal + D3 Gummies] 2 tab PO BID 09/03/17 Cholecalciferol (Vitamin D3) [Vitamin D3] 1,000 unit PO DAILY 09/03/17 Docusate [Colace Cap] 100 mg PO BID PRN 09/03/17 Latanoprost Ophth [Xalatan 0.005%*] 1 gtt OPTH BEDTIME 09/03/17 Potassium Chloride 20 meq PO DAILY 09/03/17 Atorvastatin Calcium [Lipitor*] 10 mg PO BEDTIME tab 09/07/17 Furosemide [Lasix*] 20 mg PO DAILY tab 09/07/17 Warfarin Sodium [Coumadin*] 1.5 mg PO DAILY tab 09/07/17 levoFLOXacin [Levaquin*] 250 mg PO DAILY #10 tab 09/07/17 New Medications: levoFLOXacin [Levaquin*] 250 mg PO DAILY #10 tab Patient Discharge Instructions: TAKE WARFARIN 1.5 MG DAILY. COME TO OFFICE THURSDAY 10:30 AM. TAKE LEVOFLOXACIN DAILY. WE WILL RECHECK INR ON THURSDAY. Followup: Efrem Gay MD [Primary Care Provider] -
== END 2017-09-07 14:00 | disposition home health service (06) | DRG 178 ==
LOC: ER 13:56 → ERHOLD 16:42 → 3RD-ICU 19:11 → 4TH 09-04 15:50
PROVIDERS: ADMIT Internal Medicine; ATTEND Internal Medicine
DX: J69.0 Pneumonitis due to inhalation of food and vomit (principal); I50.32 Chronic diastolic (congestive) heart failure; I48.2 Chronic atrial fibrillation; I27.20 Pulmonary hypertension, unspecified; H40.9 Unspecified glaucoma; Z85.3 Personal history of malignant neoplasm of breast; Z91.018 Allergy to other foods; Z79.01 Long term (current) use of anticoagulants
CPT/HCPCS: 36415; 71045; 71275; 74230; 80048; 80076; 81003; 81015; 82150; 82550; 83605; 83690; 83880; 84145; 84484; 85025; 85610; 85652; 85730; 86140; 87040; 87086; 87088; 93306; 94640; 96374; 96375; 97163; 99285; J0696; J1160; J1940; Q9967

== ENCOUNTER 2017-11-04 01:48 | Observation (INO) | payer OTHER, BC ==
[2017-11-04] MEDS ORDERED: ONDANSETRON 4 MG/2 ML VIAL ONE (02:36)
[2017-11-04] MEDS ORDERED: NA CHLORIDE 0.9% 1,000 ML ONE (02:36)
[2017-11-04 02:47] LABS: Absolute Lymphocytes (CBC) 0.4 K/uL (0.7-4.9); Absolute Monocytes 0.6 K/uL (0.1-1.3); Absolute Neutrophil 13.5 K/uL (1.8-8.0); Basophils % 0.1 % (0-1.3); Eosinophils % 0.8 % (0-4.4); Lymphocytes % 2.7 % (15.3-44.8); MCH 29.5 pg (27.0-35.0); MCV 90.2 fL (80-100); MPV 8.7 fL (7.6-11.3); Monocytes % 4.3 % (3.3-12.3); RBC Red Blood Cell Count 4.55 M/uL (3.86-4.86)
[2017-11-04 03:12] LABS: Albumin 3.1 g/dL (3.4-5.0); Bilirubin Direct 0.1 mg/dL (0-0.2); Bilirubin Total 0.4 mg/dL (0.2-1.0); Potassium 4.2 mmol/L (3.5-5.1); Protein, Total 6.9 g/dL (6.4-8.2)
[2017-11-04] MEDS ORDERED: DIPHENOX/ATROP SULF 1 TAB PO ONE (03:20)
[2017-11-04 04:45] LABS: Blood Morphology Comment NOT SEEN (NOT SEEN); Platelet Estimate ADEQ
--- NOTE | 2017-11-04 06:57 | ER ---
Nurse's Notes [facility] Name: Monik Romo Age: 87 yrs Sex: Female : 1930 Arrival Date: 11/04/2017 Time: 01:52 Bed 14 Private MD: Flip Molina F Diagnosis: Abdominal pain. Vomiting. Diarrhea Presentation: 11/04 02:05 Presenting complaint: Patient states: she has vomited a couple of times and has had bb loose stools since 2350 last night denies abdominal pain, fever. Transition of care: patient was not received from another setting of care. Onset of symptoms was November 03, 2017 at 23:50. Risk Assessment: Do you want to hurt yourself or someone else? Patient reports no desire to harm self or others. Initial Sepsis Screen: Does the patient meet any 2 criteria? No. Patient's initial sepsis screen is negative. Does the patient have a suspected source of infection? No. Patient's initial sepsis screen is negative. Care prior to arrival: None. 02:05 Method Of Arrival: Wheelchair bb 02:05 Acuity: JULIAN 3 bb Triage Assessment: 02:11 General: Appears in no apparent distress. Behavior is calm, cooperative. Pain: Denies ak1 pain. EENT: No signs and/or symptoms were reported regarding the EENT system. Neuro: No deficits noted. Cardiovascular: Rhythm is atrial fibrillation. Respiratory: No deficits noted. GI: Reports diarrhea, nausea, vomiting, since 2350 tonight. : No signs and/or symptoms were reported regarding the genitourinary system. Derm: No signs and/or symptoms reported regarding the dermatologic system. Musculoskeletal: No signs and/or symptoms reported regarding the musculoskeletal system. Historical: - Allergies: 02:07 AVACADO; bb 02:07 cranberry; bb 02:07 Grapefruit; bb - Home Meds: 02:07 atorvastatin 10 mg Oral tab 1 tab once daily [Active]; Colace 100 mg Oral cap 1 cap bb once daily [Active]; metoprolol tartrate 25 mg Oral tab 1 tab 2 times per day [Active]; potassium chloride 20 mEq/15 mL Oral liqd 15 mL once daily [Active]; Vitamin D3 1,000 unit Oral tab daily [Active]; warfarin 2.5 mg Oral tab 1 tab once daily [Active]; xaltan daily [Active]; - PMHx: 02:07 Atrial Fib; breast cancer; CHF; Glaucoma; pulmonary HTN; bb - Immunization history:: Adult Immunizations up to date. - Social history:: Smoking status: Patient/guardian denies using tobacco, Patient/guardian denies using alcohol, street drugs. - Ebola Screening: : No symptoms or risks identified at this time. Screenin:12 Abuse screen: Denies threats or abuse. Denies injuries from another. Nutritional ak1 screening: No deficits noted. Tuberculosis screening: No symptoms or risk factors identified. Fall Risk Ambulatory Aid- Crutches/Cane/Walker (15 pts). Assessment: 03:20 Reassessment: Patient appears in no apparent distress at this time. No changes from ak1 previously documented assessment. Patient states symptoms have improved. no vomiting or diarrhea since being in ER 14. 04:05 GI: Abdomen is flat, Bowel sounds present X 4 quads. Abd is soft and non tender X 4 ak1 quads. 04:06 Reassessment: pt and rn home care informed of CT scan to be done and lab results. pt ak1 given oral contrast to drink. will continue to monitor. . 06:13 Reassessment: pt waiting on CT results. no vomiting, no diarrhea noted or reported ak1 while in ER. will continue to monitor. 07:02 Reassessment: REPORT GIVEN TO LULÚ ROJAS. ak1 07:15 Reassessment: Patient appears in no apparent distress at this time. Patient and/or ph family updated on plan of care and expected duration. Pain level reassessed. Patient is alert, oriented x 3, equal unlabored respirations, skin warm/dry/pink. Patient denies pain at this time. Patient states symptoms have improved. 08:15 Reassessment: Patient appears in no apparent distress at this time. Patient and/or ph family updated on plan of care and expected duration. Pain level reassessed. Patient is alert, oriented x 3, equal unlabored respirations, skin warm/dry/pink. Dr Gay at bedside to speak w/ pt and family, awaiting admit orders and room assignment. 09:45 Reassessment: Patient appears in no apparent distress at this time. Patient and/or ph family updated on plan of care and expected duration. Pain level reassessed. Patient is alert, oriented x 3, equal unlabored respirations, skin warm/dry/pink. Pt sitting in recliner, caregiver at bedside, awaiting room assignment. Vital Signs: 02:07 BP 120 / 85; Pulse 116; Resp 16 S; Temp 97.9(O); Pulse Ox 94% on R/A; Weight 57.15 kg bb (R); Height 5 ft. 6 in. (167.64 cm) (R); Pain 0/10; 03:20 BP 110 / 69; Pulse 87; Resp 16; Pulse Ox 96% on R/A; Pain 0/10; ak1 04:24 BP 113 / 54; Pulse 88; Resp 16; Pulse Ox 96% on R/A; Pain 0/10; ak1 06:56 BP 107 / 65; Pulse 81; Resp 16; Pulse Ox 97% on R/A; Pain 0/10; ak1 08:00 BP 108 / 62; Pulse 82; Resp 18; Temp 97.4; Pulse Ox 96% on R/A; Pain 0/10; ph 09:00 BP 106 / 68; Pulse 82; Resp 18; Pulse Ox 98% on R/A; ph 02:07 Body Mass Index 20.34 (57.15 kg, 167.64 cm) ED Course: 01:52 Patient arrived in ED. es 01:52 Flip Molina MD is Private Physician. es 01:59 Raciel Barrientos MD is Attending Physician. pkl 02:04 Ros Harris, RN is Primary Nurse. ak1 02:07 Triage completed. bb 02:07 Arm band placed on Patient placed in an exam room, on a stretcher, on pulse oximetry. bb 02:11 Patient has correct armband on for positive identification. Bed in low position. Call ak1 light in reach. Side rails up X 1. Adult w/ patient. Pulse ox on. NIBP on. 02:27 Inserted saline lock: 22 gauge in right wrist, using aseptic technique. Blood jd3 collected. placed by Ros ROJAS. 04:23 digital field service technician notified pt finished oral contrast. ak1 05:[address] via stretcher. kw1 05:28 CT Abd/Pelvis - W/Contrast In Process Unspecified. EDMS 05:29 CT completed. Patient tolerated procedure well. Patient moved back from CT. kw1 06:54 No provider procedures requiring assistance completed. Patient admitted, IV remains in ak1 place. 06:55 Efrem Gay MD is Hospitalizing Provider. pkl 09:21 Patient moved to MRI via wheelchair. em2 09:23 Note: MRI exam not done. Patient refused due to claustrophobia and states not able to em2 hold still for length of exam of 30 minutes. Patient moved back from MRI. Administered Medications: 02:36 Drug: NS 0.9% 500 ml Route: IV; Rate: bolus; Site: right wrist; ak1 03:19 Follow up: IV Status: Completed infusion ak1 02:37 Drug: Zofran 4 mg Route: IVP; Site: right wrist; ak1 03:20 Follow up: Response: No adverse reaction ak1 03:19 Drug: NS 0.9% 1000 ml Route: IV; Rate: 125 ml/hr; Site: right wrist; ak1 13:30 Follow up: Response: No adverse reaction; IV Status: Completed infusion ph 03:19 Drug: LoMOTIL 1 tabs Route: PO; ak1 03:57 Follow up: Response: No adverse reaction ak1 Outcome: 06:54 Condition: stable ak1 06:54 Instructed on the need for admit. 06:57 Decision to Hospitalize by Provider. pkl 10:50 Admitted to ER Hold. Please see [facility] for further documentation. ph 13:13 Patient left the ED. ph Signatures: Dispatcher [employer] Raciel Au MD MD pkl Bridgette Morales Brenda, RN RN bb Montes, Enrique em2 Ros Harris RN RN ak1 Syl Hammond ph D, RN RNavies, Jonathon, RN RN jd3 Wilhelm, Kimberly 1 Corrections: (The following items were deleted from the chart) 04:09 04:06 Reassessment: pt and rn home care informed of CT scan to be done and lab results. ak1 will continue to monitor. . ak1
--- NOTE | 2017-11-04 06:57 | EDPHYS ---
Physician Documentation [facility] Name: Monik Romo Age: 87 yrs Sex: Female : 1930 Arrival Date: 11/04/2017 Time: 01:52 Bed 14 Private MD: Flip Molina F ED Physician Raciel Barrientos HPI: 11/04 02:28 This 87 yrs old Female presents to ER via Wheelchair with complaints of pkl Vomiting/Diarrhea. 02:28 The patient presents to the emergency department with nausea, vomiting, diarrhea. pkl Onset: The symptoms/episode began/occurred today. Historical: - Allergies: 02:07 AVACADO; bb 02:07 cranberry; bb 02:07 Grapefruit; bb - Home Meds: 02:07 atorvastatin 10 mg Oral tab 1 tab once daily [Active]; Colace 100 mg Oral cap 1 cap bb once daily [Active]; metoprolol tartrate 25 mg Oral tab 1 tab 2 times per day [Active]; potassium chloride 20 mEq/15 mL Oral liqd 15 mL once daily [Active]; Vitamin D3 1,000 unit Oral tab daily [Active]; warfarin 2.5 mg Oral tab 1 tab once daily [Active]; xaltan daily [Active]; - PMHx: 02:07 Atrial Fib; breast cancer; CHF; Glaucoma; pulmonary HTN; bb - Immunization history:: Adult Immunizations up to date. - Social history:: Smoking status: Patient/guardian denies using tobacco, Patient/guardian denies using alcohol, street drugs. - Ebola Screening: : No symptoms or risks identified at this time. ROS: 02:28 Eyes: Negative for injury, pain, redness, and discharge, ENT: Negative for injury, pkl pain, and discharge, Neck: Negative for injury, pain, and swelling, Cardiovascular: Negative for chest pain, palpitations, and edema, Respiratory: Negative for shortness of breath, cough, wheezing, and pleuritic chest pain. 02:28 Abdomen/GI: Positive for nausea, vomiting, and diarrhea. 02:28 Back: Negative for acute changes. 02:28 : Negative for urinary symptoms. 02:28 MS/extremity: Negative for acute changes. 02:28 Skin: Negative for rash. 02:28 Neuro: Negative for altered mental status. Exam: 02:28 Head/Face: Normocephalic, atraumatic. Eyes: Pupils equal round and reactive to light, pkl extra-ocular motions intact. Lids and lashes normal. Conjunctiva and sclera are non-icteric and not injected. Cornea within normal limits. Periorbital areas with no swelling, redness, or edema. ENT: Nares patent. No nasal discharge, no septal abnormalities noted. Tympanic membranes are normal and external auditory canals are clear. Oropharynx with no redness, swelling, or masses, exudates, or evidence of obstruction, uvula midline. Mucous membranes moist. Neck: Trachea midline, no thyromegaly or masses palpated, and no cervical lymphadenopathy. Supple, full range of motion without nuchal rigidity, or vertebral point tenderness. No Meningismus. Chest/axilla: Normal chest wall appearance and motion. Nontender with no deformity. No lesions are appreciated. Cardiovascular: Regular rate and rhythm with a normal S1 and S2. No gallops, murmurs, or rubs. Normal PMI, no JVD. No pulse deficits. Respiratory: Lungs have equal breath sounds bilaterally, clear to auscultation and percussion. No rales, rhonchi or wheezes noted. No increased work of breathing, no retractions or nasal flaring. 02:28 Abdomen/GI: Bowel sounds: active, Palpation: abdomen is soft and non-tender, in all quadrants. 02:28 Back: Exam negative for acute changes. 02:28 : Exam negative for acute changes. 02:28 Musculoskeletal/extremity: Exam is negative for acute changes. 02:28 Skin: Exam negative for rash. 02:28 Neuro: Orientation: is normal, Mentation: is normal, Cranial nerves: grossly normal, Motor: is normal. Vital Signs: 02:07 BP 120 / 85; Pulse 116; Resp 16 S; Temp 97.9(O); Pulse Ox 94% on R/A; Weight 57.15 kg bb (R); Height 5 ft. 6 in. (167.64 cm) (R); Pain 0/10; 03:20 BP 110 / 69; Pulse 87; Resp 16; Pulse Ox 96% on R/A; Pain 0/10; ak1 04:24 BP 113 / 54; Pulse 88; Resp 16; Pulse Ox 96% on R/A; Pain 0/10; ak1 06:56 BP 107 / 65; Pulse 81; Resp 16; Pulse Ox 97% on R/A; Pain 0/10; ak1 08:00 BP 108 / 62; Pulse 82; Resp 18; Temp 97.4; Pulse Ox 96% on R/A; Pain 0/10; ph 09:00 BP 106 / 68; Pulse 82; Resp 18; Pulse Ox 98% on R/A; ph 02:07 Body Mass Index 20.34 (57.15 kg, 167.64 cm) bb MDM: 01:59 Patient medically screened. pkl 06:54 Data reviewed: vital signs, nurses notes, lab test result(s), radiologic studies, CT pkl scan. ED course: Talked to Dr. Shea For observation. 11/04 02:18 Order name: Amylase, Serum; Complete Time: 03:44 pkl 11/04 02:18 Order name: Basic Metabolic Panel; Complete Time: 03:44 pkl 11/04 02:18 Order name: CBC with Diff; Complete Time: 05:06 pkl 11/04 02:18 Order name: Creatinine for Radiology; Complete Time: 03:44 pkl 11/04 02:18 Order name: Hepatic Function; Complete Time: 03:44 pkl 11/04 02:18 Order name: Lipase; Complete Time: 03:44 pkl 11/04 02:18 Order name: Urine Microscopic Only pkl 11/04 02:18 Order name: Stool Culture pkl 11/04 02:50 Order name: Manual Differential; Complete Time: 05:06 EDMS 11/04 07:01 Order name: Basic Metabolic Panel EDMS 11/04 07:01 Order name: Basic Metabolic Panel EDMS 11/04 07:01 Order name: CBC with Automated Diff EDMS 11/04 07:01 Order name: CBC with Automated Diff EDMS 11/04 10:35 Order name: Urine Dipstick--Ancillary (enter results) eb 11/04 02:18 Order name: IV Saline Lock; Complete Time: 02:27 pkl 11/04 02:18 Order name: Labs collected and sent; Complete Time: 02:28 pkl 11/04 03:45 Order name: CT Abd/Pelvis - W/Contrast pkl 11/04 07:01 Order name: Clear Liquid EDMS 11/04 12:04 Order name: Urine Dipstick-Ancillary EDMS Administered Medications: 02:36 Drug: NS 0.9% 500 ml Route: IV; Rate: bolus; Site: right wrist; ak1 03:19 Follow up: IV Status: Completed infusion ak1 02:37 Drug: Zofran 4 mg Route: IVP; Site: right wrist; ak1 03:20 Follow up: Response: No adverse reaction ak1 03:19 Drug: NS 0.9% 1000 ml Route: IV; Rate: 125 ml/hr; Site: right wrist; ak1 13:30 Follow up: Response: No adverse reaction; IV Status: Completed infusion ph 03:19 Drug: LoMOTIL 1 tabs Route: PO; ak1 03:57 Follow up: Response: No adverse reaction ak1 Disposition: 11/04/17 06:57 Hospitalization ordered by Efrem Gay for Observation. Preliminary diagnosis is Abdominal pain. Vomiting. Diarrhea. - Bed requested for Telemetry/MedSurg (observation). - Status is Observation. ph - Condition is Stable. - Problem is new. - Symptoms have improved. UTI on Admission? No Signatures: Dispatcher [employer] EDDimple Funes RN RN Raciel Zimmerman MD MD pkl Xiao Landis RN CRYSTAL bb Corinna Yun RN RN ss Ros Harris RN RN akSyl Ballesteros RN RN ph Corrections: (The following items were deleted from the chart) 10:50 06:57 Hospitalization Ordered by Efrem Gay MD for Observation. Preliminary diagnosis ss is Abdominal pain. Vomiting. Diarrhea. Bed requested for Telemetry/MedSurg (observation). Status is Observation. Condition is Stable. Problem is new. Symptoms have improved. UTI on Admission? No. pkl 11:46 10:50 11/04/2017 06:57 Hospitalization Ordered by Efrem Gay MD for Observation. dw Preliminary diagnosis is Abdominal pain. Vomiting. Diarrhea. Bed requested for [facility] ER HOLD. Status is Observation. Condition is Stable. Problem is new. Symptoms have improved. UTI on Admission? No. ss 13:13 11:46 11/04/2017 06:57 Hospitalization Ordered by Efrem Gay MD for Observation. ph Preliminary diagnosis is Abdominal pain. Vomiting. Diarrhea. Bed requested for Telemetry/MedSurg (observation). Status is Observation. Condition is Stable. Problem is new. Symptoms have improved. UTI on Admission? No. dw
[2017-11-04] MEDS ORDERED: ACETAMINOPHEN 500 MG TAB PO PRN (06:59)
[2017-11-04] MEDS: NA CHLORIDE 0.9% 1,000 ML IV SCH ×4 (07:00→18:00)
--- NOTE | 2017-11-04 08:15 | RAD REPORT ---
EXAM DESCRIPTION: CTAbdomen Pelvis W Contrast - 11/04/2017 6:40 am CLINICAL HISTORY: Abdominal pain. vomiting, diarrhea COMPARISON: No comparisons TECHNIQUE: Biphasic CT imaging of the abdomen and pelvis was performed with 100 ml non-ionic IV cont rast. All CT scans are performed using dose optimization technique as appropriate and may include automated exposure control or mA/KV adjustment according to patient size. FINDINGS: Mild linear opacities are present in both lung bases, greater on the left.Cholelithiasis. The liver demonstrates no focal mass or biliary dilatation. The spleen, adrenal glands kidneys are wi thin normal limits. Prominent cyst is present inferior right kidney measuring 4.4 cm. Small 11 x 10 m m low-density lesion is seen mid body of the pancreas. Prominent aortic atherosclerosis. No bowel obstruction, free air, free fluid or abscess. Mildly thickened small bowel loops in the left abdomen are seen. No evidence of acute appendicitis. No evidence of significant lymphadenopathy. Mild degenerative anterolisthesis of L4 on 5 is seen. IMPRESSION: Mildly thickened small bowel loops in the left upper quadrant are noted, suggesting ente ritis. Cholelithiasis. 1 cm round hypodensity in the pancreatic body with maybe a cystadenoma, pancreatic cyst or IPMN. Foll owup surveillance imaging may be obtained in 6 months to ensure stability.
--- OUTSIDE RECORDS SUMMARY | 2017-11-04 08:16 | XMS REPORT | Clinical Summary ---
:1930 Author Organization [facility] Address [address] [place] [address] Phone Care Team Providers Name Role Phone [...] right foot 12/03/2015 Weakness generalized 12/03/2015 Sepsis ([facility]) 12/03/2015 Pleural effusion 12/03/2015 Thoracic aorta atherosclerosis ([facility]) 12/03/2015 Non-rheumatic tricuspid valve insufficiency 12/03/2015 Enlarged LA (left atrium) 12/03/2015 Hypotension 12/02/2015 Chronic diastolic heart failure ([facility]) 12/02/2015 Elevated liver enzymes 12/02/2015 Supratherapeutic INR 12/02/2015 SIRS (systemic inflammatory response syndrome) ([facility]) 12/01/2015 Atrial fibrillation with RVR ([facility]) 11/30/2015 Social History Tobacco Use Types Packs/Day Years Used Date Never Smoker Alcohol Use Drinks/Week oz/Week Comments No Sex Assigned at Date Recorded Not on file Last Filed Vital Signs Not on file Plan of Treatment Not on file Results Not on fileafter 11/03/2016
[2017-11-04 11:03] LABS: Urine Bacteria NONE SEEN /HPF (<20); Urine Culture Reflex Order NOT NEEDED
[2017-11-04 12:04] LABS: Urine Blood 1+ (NEG); Urine Glucose NEGATIVE (NEG); Urine Protein NEGATIVE (NEG); Urine pH 5.5 (5.0-7.0)
[2017-11-04] MEDS ORDERED: ONDANSETRON 4 MG/2 ML VIAL IV PRN (13:10)
[2017-11-04] MEDS ORDERED: ACETAMINOPHEN 325 MG TABLET PO PRN (17:32)
--- NOTE | 2017-11-04 17:40 | P.HP ---
Certification for Inpatient Patient admitted to: Observation With expected LOS: <2 Midnights Practitioner: I am a practitioner with admitting privileges, knowledge of patient current condition, hospital course, and medical plan of care. Services: Services provided to patient in accordance with Admission requirements found in Title 42 Section 412.3 of the Code of Federal Regulations Patient History Date of Service: 11/04/17 Reason for admission: NAUSEA AND VOMITING History of Present Illness: MS. MADRID WAS IN USUAL STATE OF HEALTH , FEELING GOOD UNTIL THIS AM. SHE THIS AM WOKE UP WITH PAIN IN ABDOMEN, NAUSEA AND VOMITING AFTER SHE ATE LOT MORE THAN SHE USUALLY WILL LAST NIGHT. SHE IS BETTER NOW IN THE ER. Allergies cranberry Allergy (Verified 11/04/17 13:50) Unknown grapefruit Allergy (Verified 11/04/17 13:50) Unknown avacado Allergy (Uncoded 09/03/17 20:51) Unknown Home Medications: Acetaminophen [Tylenol] 325 mg PO Q6HP PRN 09/03/17 Calcium Phosphate Trib/Vit D3 [Citracal + D3 Gummies] 2 tab PO BID 09/03/17 Cholecalciferol (Vitamin D3) [Vitamin D3] 1,000 unit PO DAILY 09/03/17 Docusate [Colace Cap] 100 mg PO DAILY 09/03/17 Latanoprost Ophth [Xalatan 0.005%*] 1 gtt OPTH BEDTIME 09/03/17 Potassium Chloride 20 meq PO DAILY 09/03/17 Atorvastatin Calcium [Lipitor] 10 mg PO BEDTIME #30 tab 09/08/17 Furosemide [Lasix*] 20 mg PO DAILY #30 tab 09/08/17 Warfarin Sodium [Coumadin*] 2 mg PO DAILY 5 PM 11/04/17 - Past Medical/Surgical History Has patient received pneumonia vaccine in the past: Yes Diabetic: No -: atrial Fibrillation -: breast cancer -: CHF -: Glaucoma -: tonsilectomy -: hysterectomy -: mastectomy - Family History Father -: Cancer Mother -: Cancer - Social History Smoking Status: Never smoker Alcohol use: No CD- Drugs: No Caffeine use: Yes Place of Residence: Home Review of Systems 10-point ROS is otherwise unremarkable Physical Examination - Vital Signs Temperature: 98.7 F Blood Pressure: 119/79 Pulse: 88 Respirations: 18 Pulse Ox (%): 95 - Physical Exam General: Alert, Oriented x3, Cooperative, Cachectic, Mild distress HEENT: Atraumatic, PERRLA, Mucous membr. moist/pink, EOMI, Sclerae nonicteric Neck: Supple, 2+ carotid pulse no bruit, No LAD, Without JVD or thyroid abnormality Respiratory: Clear to auscultation bilaterally, Normal air movement Cardiovascular: Regular rate/rhythm, Normal S1 S2 Gastrointestinal: Normal bowel sounds, No tenderness Musculoskeletal: No tenderness Integumentary: No rashes Neurological: Normal gait, Normal speech, Normal strength at 5/5 x4 extr, Normal tone, Normal affect Lymphatics: No axilla or inguinal lymphadenopathy - Studies Laboratory Data (last 24 hrs) 11/04/17 02:25: Creatinine 1.10 11/04/17 02:25: WBC 14.6 H, Hgb 13.4, Hct 41.0, Plt Count 280 11/04/17 02:25: Sodium 140, Potassium 4.2, BUN 26 H, Creatinine 1.10, Glucose 142 H, Total Bilirubin 0.4, AST 16, ALT 12, Alkaline Phosphatase 71, Amylase 65 , Lipase 157 Assessment and Plan - Problems (Diagnosis) (1) Gastrointestinal intolerance to foods Current Visit: Yes Status: Acute Plan: MOST LIKELY REASON FOR ADMISSION SUPPORTIVE THERAPY. STABLE. (2) Pancreatic mass Current Visit: Yes Status: Acute Plan: NOT SURE IF THIS IS CANCER OR NOT. SHE REFUSES TO DO MRI EVEN WITH HELP OF SEDATIVE. (3) Ileitis Current Visit: Yes Status: Acute Plan: SHOULD DO WELL , MAY BE ABLE TO GO HOME IN AM. - Advance Directives Does patient have a Living Will: Yes Does patient have a Durable POA for Healthcare: Yes
[2017-11-04] MEDS ORDERED: CALCIUM PHOSPHATE TRIB PO SCH (21:00)
[2017-11-04] MEDS ORDERED: ATORVASTATIN 10 MG TAB PO SCH (21:00)
[2017-11-04] MEDS ORDERED: LATANOPROST 0.005% 2.5ML OPTH OPTH SCH (21:00)
[2017-11-04] MEDS ORDERED: VIT D3 PO SCH (21:00)
[2017-11-04] MEDS: CALCIUM CARB 500MG/VIT D 200 IU TAB PO SCH ×2 (21:00→21:34)
[2017-11-05] MEDS: NA CHLORIDE 0.9% 1,000 ML IV SCH (02:48)
[2017-11-05 04:18] LABS: Absolute Lymphocytes (CBC) 1.1 K/uL (0.7-4.9); Absolute Monocytes 0.4 K/uL (0.1-1.3); Absolute Neutrophil 4.2 K/uL (1.8-8.0); Basophils % 0.3 % (0-1.3); Eosinophils % 2.6 % (0-4.4); Hematocrit 31.8 % (36.0-45.0); Lymphocytes % 18.8 % (15.3-44.8); MCH 30.6 pg (27.0-35.0); MCV 89.6 fL (80-100); MPV 8.3 fL (7.6-11.3); Monocytes % 6.1 % (3.3-12.3); RBC Red Blood Cell Count 3.55 M/uL (3.86-4.86)
[2017-11-05 04:38] LABS: Potassium 3.6 mmol/L (3.5-5.1)
[2017-11-05] MEDS ORDERED: FUROSEMIDE 20 MG TABLET PO SCH (09:00)
[2017-11-05] MEDS: CALCIUM CARB 500MG/VIT D 200 IU TAB PO SCH (09:00)
[2017-11-05] MEDS ORDERED: POTASSIUM CL SA 10 MEQ TAB PO SCH (09:00)
[2017-11-05] MEDS ORDERED: HOME MED 1 EA UNK (Cholecalciferol (Vitamin D3) [Vitamin D3] 1,000 UNIT) PO SCH (09:00)
[2017-11-05] MEDS ORDERED: HOME MED 1 EA UNK (Potassium Chloride [Potassium Chloride] 20 MEQ) PO SCH (09:00)
[2017-11-05] MEDS: VITAMIN D 1000 UNIT TAB PO SCH ×2 (09:00→09:03)
[2017-11-05] MEDS: DOCUSATE NA 100 MG CAP PO SCH ×2 (09:00→09:03)
--- NOTE | 2017-11-05 13:07 | P.DS ---
Admission Date: 11/04/17 Discharge Date: 11/05/17 Disposition: ROUTINE DISCHARGE Reason for Admission: NAUSEA AND VOMITING - Problems (1) Gastrointestinal intolerance to foods Onset Date: 11/05/17 Status: Acute (2) Pancreatic mass Onset Date: 11/05/17 Status: Acute (3) Ileitis Onset Date: 11/05/17 Status: Acute Brief History of Present Illness: MS. MADRID WAS IN USUAL STATE OF HEALTH , FEELING GOOD UNTIL THIS AM. SHE THIS AM WOKE UP WITH PAIN IN ABDOMEN, NAUSEA AND VOMITING AFTER SHE ATE LOT MORE THAN SHE USUALLY WILL LAST NIGHT. SHE IS BETTER NOW IN THE ER. Vital Signs/Physical Exam: Temp Pulse Resp BP Pulse Ox 97.4 F 77 18 137/84 93 11/05/17 08:00 11/05/17 09:03 11/05/17 08:00 11/05/17 09:03 11/05/17 08:00 Laboratory Data at Discharge: WBC 5.9 K/uL (4.3-10.9) D 11/05/17 03:38 Hgb 10.9 g/dL (12.0-15.0) L D 11/05/17 03:38 Hct 31.8 % (36.0-45.0) L D 11/05/17 03:38 Plt Count 222 K/uL (152-406) D 11/05/17 03:38 Sodium 143 mmol/L (136-145) 11/05/17 03:38 Potassium 3.6 mmol/L (3.5-5.1) 11/05/17 03:38 BUN 13 mg/dL (7-18) 11/05/17 03:38 Creatinine 0.70 mg/dL (0.55-1.3) 11/05/17 03:38 Glucose 85 mg/dL (74-106) 11/05/17 03:38 Total Bilirubin 0.4 mg/dL (0.2-1.0) 11/04/17 02:25 AST 16 U/L (15-37) 11/04/17 02:25 ALT 12 U/L (12-78) 11/04/17 02:25 Alkaline Phosphatase 71 U/L (45-117) 11/04/17 02:25 Amylase 65 U/L (25-115) 11/04/17 02:25 Lipase 157 U/L (73-393) 11/04/17 02:25 Home Medications: Acetaminophen [Tylenol] 325 mg PO Q6HP PRN 09/03/17 Calcium Phosphate Trib/Vit D3 [Citracal + D3 Gummies] 2 tab PO BID 09/03/17 Cholecalciferol (Vitamin D3) [Vitamin D3] 1,000 unit PO DAILY 09/03/17 Docusate [Colace Cap] 100 mg PO DAILY 09/03/17 Latanoprost Ophth [Xalatan 0.005%*] 1 gtt OPTH BEDTIME 09/03/17 Potassium Chloride 20 meq PO DAILY 09/03/17 Atorvastatin Calcium [Lipitor] 10 mg PO BEDTIME #30 tab 09/08/17 Furosemide [Lasix*] 20 mg PO DAILY #30 tab 09/08/17 Warfarin Sodium [Coumadin*] 2 mg PO DAILY 5 PM 11/04/17 Followup: Efrem Gay MD [Primary Care Provider] - (call to schedule appointment)
[2017-11-05] MEDS ORDERED: WARFARIN SODIUM 2 MG TAB PO SCH (17:00)
--- NOTE | 2017-11-06 00:56 | DS ---
Date of Discharge: 11/05/2017 Final Diagnoses: Nausea, vomiting, and possible food poisoning. Secondary Diagnoses: Atrial fibrillation, congestive heart failure, and pancreatic cyst versus mass. Hospital Course: The patient is an 87-year-old lady, comes in with nausea and vomiting after overeat ing last night and a CT scan showed some ileitis any duodenitis, but otherwise she is very comfortabl e, stable to be discharged home and eager to go home today this morning before 10 o'clock. She has a pancreatic cyst versus mass and not wanting to do any kind of investigation for it even after sedati on. So, she knows if it is mass or tumor, this could be a cancer sometime, but most likely it is a c yst. The patient is comfortable and discharged home. SAHRA/JESSICA Voice ID: [id number] Report ID: [id number]
== END 2017-11-05 10:58 | disposition home health service (06) ==
LOC: ER 01:48 → ERHOLD 06:58 → 4TH 13:02
PROVIDERS: ADMIT Internal Medicine; ATTEND Internal Medicine
DX: K52.9 Noninfective gastroenteritis and colitis, unspecified (principal); I48.91 Unspecified atrial fibrillation; I11.0 Hypertensive heart disease with heart failure; I50.9 Heart failure, unspecified; R19.00 Intra-abdominal and pelvic swelling, mass and lump, unspecified site; Z85.3 Personal history of malignant neoplasm of breast
CPT/HCPCS: 36415 ×2; 74177; 80048 ×2; 80076; 82150; 83690; 85025 ×2; 96361; 96374; 99285; G0378 ×2; J2405; J7030 ×3; Q9967; 81003; 81015